=== PATIENT | female | born 1980 | race African-American/Black ===

== ENCOUNTER 2017-01-23 16:59 | Emergency (ER) | payer BC ==
[~2017-01-23] VITALS: Ht 177.8 cm; Wt 127.3 kg
[2017-01-23] MEDS ORDERED: CYCL10 PO (17:07)
[2017-01-23] MEDS ORDERED: IBUP-2071 PO (17:07)
[2017-01-23] MEDS ORDERED: KETOROLAC TROMETHAMINE 60 MG/2 ML VIAL IM ONE (19:15)
[2017-01-23] MEDS ORDERED: CYCLOBENZAPRINE HCL 10 MG TABLET PO ONE (19:15)
[2017-01-23 20:00] VITALS: BP 124/78
== END 2017-01-23 20:04 | disposition home or self-care (01) ==
LOC: EMS 17:01
DX: S39.012A Strain of muscle, fascia and tendon of lower back, initial encounter (principal); M54.42 Lumbago with sciatica, left side; J45.909 Unspecified asthma, uncomplicated; R20.2 Paresthesia of skin; X58.XXXA Exposure to other specified factors, initial encounter; Y93.89 Activity, other specified; Y92.89 Other specified places as the place of occurrence of the external cause; Y99.8 Other external cause status
CPT/HCPCS: 96372; 99283; J1885